=== PATIENT | female | born 1995 | race Caucasian/White ===

== ENCOUNTER 2018-06-24 17:49 | Emergency (ER) | payer BC ==
[~2018-06-24] VITALS: Ht 165.1 cm; Wt 63.6 kg
[~2018-06-24 17:49] MED LIST: TRINESSA 281 TAB
[2018-06-24 18:04] VITALS: TEMP 97.6
[2018-06-24] MEDS ORDERED: LO LOESTRIN FE1 TAB PO (18:53)
[2018-06-24 19:35] VITALS: BP 107/76; PULSE 81
== END 2018-06-24 19:35 | disposition home or self-care (01) ==
LOC: COL.ER 17:49
DX: R55 Syncope and collapse (principal)